=== PATIENT | female | born 1960 | race African-American/Black ===

== ENCOUNTER 2017-10-30 10:34 | Emergency (ER) | payer OTHER ==
[~2017-10-30] VITALS: Ht 165.1 cm; Wt 90.7 kg
[2017-10-30 10:44] VITALS: TEMP 97.9
[2017-10-30 11:15] LABS: PLATELET COUNT 213 K/uL (152-353)
[2017-10-30 11:19] LABS: POTASSIUM 4.3 mmol/L (3.6-5.2); SODIUM 142 mmol/L (136-145)
[2017-10-30 14:20] VITALS: BP 118/78
== END 2017-10-30 14:21 | disposition home or self-care (01) ==
LOC: ED 10:34
PROVIDERS: Family Medicine
DX: R07.89 Other chest pain (principal); K21.9 Gastro-esophageal reflux disease without esophagitis
CPT/HCPCS: 36415; 80053; 81000; 84484; 85027; 93005; 99283